=== PATIENT | female | born 2005 | race Caucasian/White ===

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

== ENCOUNTER 2023-02-10 09:19 | Observation (INO) | payer OTHER ==
[~2023-02-10 09:19] MED LIST changes: +AMOX TR-K CLV1 EAC1 PO
--- NOTE | 2023-02-10 12:05 | NUR ---
RT COLLECTED RAPID COVID 19 SWAB WITH NO COMPLICATIONS AT THIS TIME.
--- NOTE | 2023-02-10 12:18 | PR ---
[facility] [address], [place] [address] Signed AP Progress Notes Datetime Report Generated by CPN: 02/10/2023 12:18 Chief Complaint: Elevated BP and Headache PHYSICAL EXAM: [id number] General: Normal Physical Exam Comments: AST = 262 (H), Urine P/C ratio = 1.38 (H) Plts = 198, Hgb/Hct = 12.3/36.3, Creatinine = 0.71, Uric Acid = 4.9 Impression: Preeclampsia with Severe Features Plan: M Consult with Dr. Rehana Laureano: agree with Maternal Transport Betamethasone 12 mg now Labetalol 200 mg po just prior to transpot (Procardia XL 30 mg po, if low pulse) [facility] called for Ambulance transport to [facility], [place], [place]) Discussed plan with patient, questions answered, consent signed. VITAL SIGNS: [id number] Vital Signs: Reviewed EXAM: [id number] Contraction Comments: none MEMBRANES: [id number] Membranes: Intact FETUS A: [id number] FHR Baseline: 140 Variability: Moderate 6-25bpm Accelerations: 15X15 Presentation: Vertex FETUS B: [id number] PROGRESS NOTES: [id number] Signing Physician: Cindy Bah MD Copies: ~ *Electronically Signed* 02/10/23 1218 CINDY BAH MD PATIENT NAME: DONOVAN ARMSTRONG PROGRESS NOTE DATE OF : 03 PHYSICIAN: CINDY BAH MD RPT #: [id number] REPORT IS CONFIDENTIAL AND NOT TO BE RELEASED WITHOUT AUTHORIZATION
[2023-02-10 13:13] VITALS: BP 159/98
== END 2023-02-10 13:21 | disposition short-term general hospital (02) ==
LOC: FBCO 09:19 → FBC 10:45 → FBCO 10:45 → FBC 13:21
PROVIDERS: ADMIT General Practice; ATTEND General Practice
DX: O14.13 Severe pre-eclampsia, third trimester (principal); Z3A.32 32 weeks gestation of pregnancy; Z20.822 Contact with and (suspected) exposure to COVID-19
CPT/HCPCS: 36415; 59025; 82565; 82570; 84156; 84450; 84520; 84550; 85027; 96361; 96365; 96366; 96372; 96374; C9803; G0378; G0463; J0702; J3475; U0002

== ENCOUNTER 2023-08-03 10:53 | Emergency (ER) | payer OTHER ==
[~2023-08-03] VITALS: Ht 185.4 cm; Wt 64.2 kg
[2023-08-03 12:47] VITALS: BP 119/80
== END 2023-08-03 12:45 | disposition home or self-care (01) ==
LOC: ED 10:53
DX: S40.861A Insect bite (nonvenomous) of right upper arm, initial encounter (principal); S40.862A Insect bite (nonvenomous) of left upper arm, initial encounter; W57.XXXA Bitten or stung by nonvenomous insect and other nonvenomous arthropods, initial encounter
CPT/HCPCS: 99282; Q0163

== ENCOUNTER 2023-09-30 08:25 | Emergency (ER) | payer OTHER ==
[~2023-09-30] VITALS: Ht 185.4 cm; Wt 64.4 kg
[2023-09-30 08:59] LABS: BASOPHILS 0.6 % (0-2); HEMATOCRIT 39.9 % (35.0-50.0); HEMOGLOBIN 13.7 g/dL (12.0-18.0); LYMPHOCYTES 9.5 % (24-44); MCH 29.1 (27-36); MCHC 34.2 g/dl (30-36); MCV 85.2 fl (81-99); MONOCYTES 2.3 % (0-12); NEUTROPHILS 87.6 % (39-80); PLATELET COUNT 259 K/uL (140-440); RBC 4.69 M/ul (4.3-5.7); RDW 12.9 (10.5-15.0)
[2023-09-30 09:26] LABS: ALBUMIN 3.7 g/dL (3.4-5.0); ALBUMIN/GLOBULIN RATIO 0.9 (1.1-2.4); ANION GAP 18.4 (7-21); BILIRUBIN, TOTAL 0.7 ng/dL (0.2-1.0); BUN/CREATININE RATIO 6.86 (6.0-28.6); CREATININE, SERUM 1.02 mg/dL (0.55-1.02); POTASSIUM 3.4 mmol/L (3.5-5.1); PROTEIN, TOTAL 7.8 g/dL (6.4-8.2)
[2023-09-30 10:12] LABS: BILIRUBIN, URINE NEGATIVE (negative); BLOOD/HGB, URINE LARGE (Negative); KETONE, URINE NEGATIVE (Negative); LEUK ESTERASE, URINE MODERATE (negative); NITRITE, URINE POSITIVE (negative)
[2023-09-30 10:19] LABS: WHITE BLOOD CELLS, URINE 21-40 /HPF (0-5)
[2023-09-30 10:20] LABS: EPITHELIAL CELLS, URINE 0 /lpf (0-1+); REFLEX CULTURE, URINE Yes (No)
[2023-09-30] MEDS ORDERED: CEFDINIR300 MG PO (10:45)
[2023-09-30 13:58] VITALS: BP 110/66
== END 2023-09-30 13:59 | disposition home or self-care (01) ==
LOC: ED 08:25
PROVIDERS: Emergency Medicine
DX: N12 Tubulo-interstitial nephritis, not specified as acute or chronic (principal); D72.829 Elevated white blood cell count, unspecified
CPT/HCPCS: 36415; 74177; 80053; 81001; 84703; 85025; 87077; 87088; 87186; 96361; 96375; 96376; 99284-25; J0696; J1170; J1885; J2405; J7030; Q9967

== ENCOUNTER 2024-08-05 06:49 | Emergency (ER) | payer OTHER ==
[~2024-08-05] VITALS: Ht 185.4 cm; Wt 70.0 kg
[~2024-08-05 06:49] MED LIST changes: +CEFDINIR300 MG PO
[2024-08-05] MEDS ORDERED: HYDROCODON-ACE1 EA10 PO (07:26)
[2024-08-05] MEDS ORDERED: PENICILLIN V P500 MG PO (07:26)
[2024-08-05 07:29] VITALS: BP 136/93
== END 2024-08-05 07:30 | disposition home or self-care (01) ==
LOC: ED 06:49
DX: K08.89 Other specified disorders of teeth and supporting structures (principal); Z79.899 Other long term (current) drug therapy
CPT/HCPCS: 99282

== ENCOUNTER 2025-03-15 16:56 | Emergency (ER) | payer OTHER ==
[~2025-03-15] VITALS: Ht 185.4 cm; Wt 61.0 kg
[~2025-03-15 16:56] MED LIST changes: +HYDROCODON-ACE1 EA10 PO; +PENICILLIN V P500 MG PO
--- NOTE | 2025-03-15 17:51 | EKG ---
[facility] [facility] [address] [facility] [place], [place] [address] Signed Sinus tachycardia Otherwise normal ECG No previous ECGs available Confirmed by Liat Matta DO ([id number]) on 03/15/2025 5:51:14 PM Electronically Signed By: LIAT MATTA DO 03/15/25 175 PATIENT NAME: DONOVAN ARMSTRONG Electrocardiogram DATE OF : 03 PHYSICIAN: LIAT MATTA DO REPORT #: [id number] REPORT IS CONFIDENTIAL AND NOT TO BE RELEASED WITHOUT AUTHORIZATION
[2025-03-15 18:34] VITALS: BP 118/78
== END 2025-03-15 18:35 | disposition home or self-care (01) ==
LOC: ED 16:56
DX: J06.9 Acute upper respiratory infection, unspecified (principal)
CPT/HCPCS: 71045; 93005; 93010; 99285-25

== ENCOUNTER 2025-04-25 14:31 | Emergency (ER) | payer OTHER ==
[~2025-04-25] VITALS: Ht 185.4 cm; Wt 62.8 kg
[2025-04-25] MEDS ORDERED: ONDANSETRON 4 MG TAB ODT SL ONE (15:00)
[2025-04-25 15:24] LABS: BASOPHILS 0.6 % (0.1-1.2); EOSINOPHILS 2.0 % (0.7-5.8); LYMPHOCYTES 23.5 % (19.3-51.7); MCH 30.0 PG (25.6-32.2); MCHC 34.4 g/dL (32.2-35.5); MCV 87.1 fL (79.4-94.8); MONOCYTES 6.3 % (4.7-12.5); NEUTROPHILS 67.4 % (34.0-71.1); RBC 4.17 M/uL (3.93-5.22)
[2025-04-25 16:05] LABS: ALT (SGPT) 15.0 U/L (14-59); AST (SGOT) 8.0 U/L (15-37); GLOMERULAR FILTRATION RATE,EST 130.0 mL/min (>60); PROTEIN, TOTAL 6.7 g/dL (6.4-8.2); UREA NITROGEN 7.0 mg/dL (7-18)
[2025-04-25 16:37] LABS: BLOOD/HGB, URINE NEGATIVE (Negative); KETONE, URINE NEGATIVE (Negative); LEUK ESTERASE, URINE NEGATIVE (negative); NITRITE, URINE NEGATIVE (negative)
[2025-04-25 16:42] LABS: BACTERIA, URINE NONE SEEN /hpf (negative); CASTS, URINE NONE SEEN \\lpf; CRYSTALS, URINE NONE SEEN (0-1+); EPITHELIAL CELLS, URINE SQUAMOUS 1+ /lpf (0-1+)
[2025-04-25 16:43] LABS: REFLEX CULTURE, URINE No (No)
[2025-04-25 18:00] VITALS: BP 110/54
== END 2025-04-25 18:00 | disposition home or self-care (01) ==
LOC: ED 14:31
PROVIDERS: Emergency Medicine
DX: O99.891 Other specified diseases and conditions complicating pregnancy (principal); R10.9 Unspecified abdominal pain; Z3A.01 Less than 8 weeks gestation of pregnancy
CPT/HCPCS: 36415; 76801; 80053; 81001; 84702; 85025; 99284-25; A9270

== ENCOUNTER 2025-05-17 11:46 | Emergency (ER) | payer OTHER ==
[~2025-05-17] VITALS: Ht 185.4 cm; Wt 65.2 kg
--- OUTSIDE RECORDS SUMMARY | 2025-05-17 11:53 | XMS ---
PreManage Notification: DONOVAN ARMSTRONG [employer] Events No recent Security Events currently on file CRITERIA MET - [facility] - 2 Visits in 30 Days CARE PROVIDERS -, [facility] Dentist: [facility] Current [employer] PHONE: [phone] [facility]Center: [facility] Current FAMILY PHONE: [phone] THERESA POWELL Physician Supervisory It Specialist Current PHONE: Unknown [facility] has no Care Guidelines for this patient. E.Noemi VISIT COUNT (12 MO.) 4 JOSE ARMANDO [place] TOTAL 4 NOTE: Visits indicate total known visits. ED/UCC VISIT TRACKING (12 MO.) 05/17/2025 11:47 [facility] TYPE: Emergency COMPLAINT: - VOMITING 04/25/2025 14:32 [facility] TYPE: Emergency COMPLAINT: - ABDOMINAL PAIN DIAGNOSES: - Less than 8 weeks gestation of - Other specified diseases and conditions complicating - Unspecified abdominal pain 03/15/2025 16:57 [facility] [place] TYPE: Emergency COMPLAINT: - CHEST PAIN DIAGNOSES: - Acute upper respiratory infection, unspecified - Other chest pain 08/05/2024 06:49 [facility] [place] TYPE: Emergency COMPLAINT: - DENTAL PAIN DIAGNOSES: - Other long-term (current) drug therapy - Other specified disorders of teeth and supporting structures INPATIENT VISIT TRACKING (12 MO.) No inpatient visits to display in this time frame [email or web address]
[2025-05-17] MEDS ORDERED: SODIUM CHLORIDE 0.9% 1,000 ML IV ONE (12:15)
[2025-05-17 12:24] LABS: BASOPHILS 0.4 % (0.1-1.2); EOSINOPHILS 0.6 % (0.7-5.8); LYMPHOCYTES 16.1 % (19.3-51.7); MCH 29.7 PG (25.6-32.2); MCHC 34.7 g/dL (32.2-35.5); MCV 85.7 fL (79.4-94.8); MONOCYTES 4.6 % (4.7-12.5); NEUTROPHILS 77.9 % (34.0-71.1); RBC 4.27 M/uL (3.93-5.22)
[2025-05-17 12:40] LABS: ALT (SGPT) 9.0 U/L (14-59); AST (SGOT) 12.0 U/L (15-37); GLOMERULAR FILTRATION RATE,EST 133.0 mL/min (>60); PROTEIN, TOTAL 6.7 g/dL (6.4-8.2); UREA NITROGEN 3.0 mg/dL (7-18)
[2025-05-17] MEDS ORDERED: ONDANSETRON ODT8 MG PO (13:32)
[2025-05-17 14:33] VITALS: BP 118/67
== END 2025-05-17 14:33 | disposition home or self-care (01) ==
LOC: ED 11:46
PROVIDERS: Emergency Medicine
DX: O21.0 Mild hyperemesis gravidarum (principal); Z3A.09 9 weeks gestation of pregnancy
CPT/HCPCS: 36415; 80053; 83735; 85025; 96361; 96374; 99284-25; J2405; J7030

== ENCOUNTER 2025-07-03 08:25 | Emergency (ER) | payer OTHER ==
[~2025-07-03] VITALS: Ht 182.9 cm; Wt 68.2 kg
[~2025-07-03 08:25] MED LIST changes: +ONDANSETRON ODT8 MG PO
[2025-07-03 09:19] LABS: BASOPHILS 0.3 % (0.1-1.2); EOSINOPHILS 0.4 % (0.7-5.8); LYMPHOCYTES 15.0 % (19.3-51.7); MCH 29.8 PG (25.6-32.2); MCHC 34.7 g/dL (32.2-35.5); MCV 86.0 fL (79.4-94.8); MONOCYTES 4.4 % (4.7-12.5); NEUTROPHILS 79.5 % (34.0-71.1); RBC 4.06 M/uL (3.93-5.22)
[2025-07-03] MEDS ORDERED: SODIUM CHLORIDE 0.9% 1,000 ML IV PRN (09:30)
[2025-07-03] MEDS ORDERED: ACETAMINOPHEN 500 MG TAB PO ONE (09:30)
[2025-07-03 09:35] LABS: ALT (SGPT) 13.0 U/L (14-59); AST (SGOT) 11.0 U/L (15-37); GLOMERULAR FILTRATION RATE,EST 143.0 mL/min (>60); PROTEIN, TOTAL 6.5 g/dL (6.4-8.2); UREA NITROGEN 8.0 mg/dL (7-18)
[2025-07-03 10:40] LABS: BLOOD/HGB, URINE NEGATIVE (Negative); KETONE, URINE TRACE (Negative); LEUK ESTERASE, URINE NEGATIVE (negative); NITRITE, URINE NEGATIVE (negative)
[2025-07-03 14:17] VITALS: BP 117/67
== END 2025-07-03 14:18 | disposition home or self-care (01) ==
LOC: ED 08:25
PROVIDERS: Emergency Medicine
DX: O99.891 Other specified diseases and conditions complicating pregnancy (principal); R10.20 Pelvic and perineal pain unspecified side; Z3A.17 17 weeks gestation of pregnancy
CPT/HCPCS: 36415; 76815; 80053; 81003; 83690; 83735; 84702; 84703; 85025; 96374; 99284-25; A9270; J2405; J7030